=== PATIENT | female | born 1960 | race Caucasian/White ===

== ENCOUNTER → 2017-09-24 | Day surgery (SDC) | payer OTHER ==
[~2017-09-24] VITALS: Ht 165.1 cm; Wt 60.1 kg
[~2017-09-24] MED LIST: AMPICILLIN/SULBAC 3 GM/NS 100 ML IV PRN; CHLORHEXIDINE GLUCONATE 2 % 1 PACK (2 CLOTHS) TOPICAL PRN; DEXAMETHASONE SOD PHOS 4 MG/ML VIAL ONE; FAMOTIDINE 20 MG/2 ML VIAL ONE; HYDROmorphone HCL PF 2 MG/ML VIAL ONE; INSULIN HUMAN REGULAR 1,000 UNITS/10 ML VIAL SQ PRN; LACTATED RINGER'S 1000 ML IV PRN; LIDOCAINE 1%/EPINEPHrine 1:100,000 SOLN 20 ML VIAL ONE; METOPROLOL TARTRATE 25 MG TAB PO PRN; MIDAZOLAM HCL 2 MG/2 ML VIAL ONE; MULTI MINERAL PO; OXYMETAZOLINE HCL 0.05% 15 ML NASAL SPRAY ONE; POVIDONE IODINE 5% (ANTISEPSIS KIT) 4 APPLICATIONS EACH NARE PRN; SODIUM CHLORID 0.9% 500 ML IV PRN; SODIUM CHLORIDE 0.9% INJ 100 ML ONE; VITA250T3 PO; VITA80003 PO; [UNRECOGNIZED DRUG - OTHER] PO; [UNRECOGNIZED DRUG - REMARK] PO
[2017-09-24 17:50] VITALS: BP 147/81; PULSE 75; RESP 15; TEMP 98.5; O2SAT 98
--- NOTE | 2017-09-24 18:33 | EKG ---
Date Performed: 09/24/2017 Time Performed: 11:05:27 PTAGE: 56 years EKG: SINUS BRADYCARDIA BORDERLINE ECG NO PREVIOUS TRACING DOCTOR: Monica Hopkins Interpretating Date/Time 09/24/2017 18:32:36
--- NOTE | 2017-10-09 09:24 | MP ---
cc: ANDREAS JONES M.D. DATE OF SURGERY: 09/24/[address] Andreas Jones. PREOPERATIVE DIAGNOSIS 1. Right chronic pansinusitis. 2. Nasal airway obstruction. 3. Nasal septal deviation. 4. Hypertrophy of inferior turbinates. POSTOPERATIVE DIAGNOSIS 1. Right chronic pansinusitis. 2. Nasal airway obstruction. 3. Nasal septal deviation. 4. Hypertrophy of inferior turbinates. OPERATION PERFORMED 1. Septoplasty. 2. Bilateral submucosal resection of inferior turbinates. 3. Right endoscopic total ethmoidectomy. 4. Right endoscopic maxillary antrostomy with removal of maxillary sinus tissue. 5. Right exploration frontal sinus duct with balloon sinuplasty. 6. Right endoscopic sphenoidotomy with removal of sphenoid sinus tissue. INDICATIONS The indications are documented in the history and physical. DESCRIPTION OF OPERATION The patient was taken to OR #2 and placed in the supine position. Following induction of general anesthesia and intubation the nose was packed bilaterally with cotton pledgets saturated 0.05% oxymetazoline. The nasal septal mucosa and inferior turbinates were injected with a total of 12 mL of 1% Xylocaine with epinephrine 1:100,000. She was then prepped and draped for surgery. The packing was removed and a hemitransfixion incision was made in the left nasal vestibule and through this incision the mucosa of septum was elevated bilaterally as far as the rostrum of the sphenoid. This was followed by removal of a 2 x 2 cm segment of quadrangular cartilage preserving 1.5 cm dorsal and caudal cartilaginous struts. Next, the bony septum was removed using Duane-Haines forceps and Bello septal forceps. The maxillary crest was removed using a 6 mm Pitkin chisel preserving the anterior nasal spine. The incision was then closed with a running suture of 4-0 chromic and the mucosal layers of septum were approximated to each other with a quilting stitch of 4-0 plain gut. The inferior turbinates were addressed next. They were fractured out medially and stab incisions were made along their inferior surfaces. Through these incisions the submucosal soft tissue was reduced using a curet and preserving the conchal bone. The incision was then cauterized using the suction Bovie at 35 vargas. The remnants of the inferior turbinates were then re-lateralized to the lateral nasal wall. The right paranasal sinuses were addressed next. Using the 0-degree fiberoptic scope additional injections of lidocaine and epinephrine were made into the right uncinate process, the middle turbinate and the ethmoid cells. The middle turbinate was amputated first using through-cutting Blakesley forceps and the power microdebrider followed by uncinectomy which exposed the ethmoid bulla. The ethmoid bulla was bluntly penetrated and gross purulence was immediately encountered. Culture was obtained from this material which was passed off the field for Gram stain and culture. Next, the ethmoids were exenterated using blunt and power dissection. This was carried back as far as the basal lamella which was then reduced medially to laterally with the power debrider exposing the posterior cells. These were also exenterated in the same fashion as the anterior cells. This was carried back as far as the rostrum of the sphenoid. The superior turbinate was preserved. There was also gross purulence present in the posterior ethmoid cells. The maxillary ostium was addressed next. This was probed using a 3 mm olive-tipped suction and it was enlarged using Stammberger forceps and with the power debrider was debrided of gross purulence and inflamed mucosa. The frontal duct was addressed next. Using the Acclarent balloon technique the balloon was advanced into the frontal sinus and was inflated to a pressure of 12 atmospheres at the superior extension at the midpoint and inferiorly at the junction with the ethmoid cells. This cavity was also irrigated through the balloon catheter with 200 mL of saline. This also flushed gross purulence from the frontal sinus. Lastly, the sphenoid sinus was addressed. The ostium was identified and probed using a #10 suction and it was enlarged with the power debrider. This cavity was also irrigated with saline and debrided of purulent material and inflamed mucosa. The ethmoid cells were then packed with cotton pledgets saturated in 0.05% oxymetazoline. These remained in place for a period of five minutes. Packing was then removed and the sinus cavities were filled with Stammberger sinus foam on the right side. The nasal vault was packed bilaterally with 5.5 cm Rapid Rhino balloon packs and these were inflated with 5 mL of air on each side and the procedure was terminated. The patient was reversed from anesthesia and taken to Recovery in good condition. There were no complications. Blood loss was 400 mL. MD AMANDA Diaz /7:56 AM /9:12 AM
== END | disposition home or self-care (01) ==
LOC: PHSDC 08:40
PROVIDERS: ATTEND Otolaryngology
DX: J32.9 Chronic sinusitis, unspecified (principal); J34.2 Deviated nasal septum; J34.3 Hypertrophy of nasal turbinates; R94.31 Abnormal electrocardiogram [ECG] [EKG]
CPT/HCPCS: 00160; 30140; 30520; 31255; 31267; 31276; 31288; 86403; 87015; 87070; 87102; 87116; 87176; 87205; 87206; 88305; 88311; 93005; J0295; J1100; J1170; J2250; J3010; J7120